=== PATIENT | male | born 1980 | race African-American/Black ===

== ENCOUNTER 2017-05-08 10:32 | Emergency (ER) | payer OTHER ==
[~2017-05-08] VITALS: Wt 94.0 kg
[2017-05-08] MEDS ORDERED: SOD CHLORIDE 0.9% 1,000 ML IV STA (11:55)
[2017-05-08] MEDS ORDERED: KETOROLAC 30 MG INJ IV STA (11:55)
[2017-05-08] MEDS ORDERED: ONDANSETRON 4 MG INJ IV STA (11:55)
[2017-05-08 12:42] LABS: BASOPHILS % 0.2 % (0.0-2.0); EOSINOPHILS % 0.1 % (0.0-7.0); HEMATOCRIT 45.6 % (42.0-52.0); HEMOGLOBIN 15.3 g/dl (14.0-18.0); LYMPHOCYTES # 1.6 10^3/ul (0.8-2.9); LYMPHOCYTES % 13.4 % (15.0-51.0); MEAN CORPUSCULAR HEMOGLOBIN 28.2 pg (29.0-33.0); MEAN CORPUSCULAR HGB CONC 33.6 g/dl (32.0-37.0); MEAN PLATELET VOLUME 10.1 fl (7.4-10.4); MONOCYTE # 1.1 10^3/ul (0.3-0.9); MONOCYTES % 9.6 % (0.0-11.0); NEUTROPHILS % 76.4 % (39.0-77.0); PLATELET COUNT 213 10^3/UL (140-415); RED BLOOD COUNT 5.43 10^6/ul (4.70-6.10); RED CELL DISTRIBUTION WIDTH 13.3 % (11.5-14.5); WHITE BLOOD COUNT 11.9 10^3/ul (4.8-10.8)
[2017-05-08 12:47] LABS: ADD UMIC YES; UR ASCORBIC ACID NEGATIVE (NEGATIVE); UR BILIRUBIN (Dip) NEGATIVE (NEGATIVE); UR BLOOD (Dip) 1+ mg/dL (NEGATIVE); UR CLARITY CLEAR (CLEAR); UR COLOR YELLOW (YELLOW); UR GLUCOSE (Dip) NEGATIVE (NEGATIVE); UR KETONES (Dip) TRACE mg/dL (NEGATIVE); UR LEUKOCYTE ESTERASE (Dip) NEGATIVE Leu/ul (NEGATIVE); UR NITRITE (Dip) NEGATIVE (NEGATIVE); UR RBC 2 /HPF (0-5); UR SPECIFIC GRAVITY (Dip) 1.016 (1.003-1.030); UR TOTAL PROTEIN (Dip) NEGATIVE (NEGATIVE); UR UROBILINOGEN (Dip) NEGATIVE (NEGATIVE)
[2017-05-08 13:04] LABS: ALBUMIN 4.2 g/dl (3.3-4.9); ALBUMIN/GLOBULIN RATIO 1.23; BILIRUBIN,INDIRECT 1.9 mg/dl (0-1.1); BILIRUBIN,TOTAL 1.9 mg/dl (0.2-1.3); CALCIUM 9.2 mg/dl (8.4-10.2); CREATININE 2.06 mg/dl (0.61-1.24); POTASSIUM 4.2 mmol/L (3.5-5.1); TOTAL PROTEIN 7.6 g/dl (6.1-8.1)
--- NOTE | 2017-05-08 13:49 | RADRPT ---
PROCEDURE: Retroperitoneal US. CLINICAL INDICATION: Flank pain TECHNIQUE: Multiple sonographic images of the kidneys and retroperitoneum were obtained. The imag es were reviewed on a PACS workstation. COMPARISON: No prior studies are available for comparison. FINDINGS: The kidneys are normal in size, contour, cortical thickness and cortical echogenicity. The right kidney measures 10.5 cm. The left kidney measures 11.5 cm. No kidney stones are visualized. There is no evidence for hydronephrosis. The urinary bladder is normal. The prostate measures 2.4 x 3.0 cm. RPTAT: AA IMPRESSION: Unremarkable retroperitoneal ultrasound. .Rupret Wilder MD, MD Date Time Electronically viewed and signed by .Rupert Wilder MD, MD on 05/08/2017 13:48 .S/
[2017-05-08] MEDS ORDERED: TAMS-14 PO (14:16)
[2017-05-08] MEDS ORDERED: TRAM50TA2 PO (14:16)
--- NOTE | 2017-05-08 14:22 | ERD ---
ER Documentation Chief Complaint Date/Time DATE: 05/08/17 TIME: 14:18 Chief Complaint l. flank pain HPI 76-year-old male presents with left flank pain. He was recently diagnosed in [place] with a kidney stone. He is prescribed [place] but has recurrent pain. He has chills but no measured fevers. He has no hematuria or dysuria discharge. He did see his primary doctor who is awaiting lab reports from his ER visit [id number]. Denies any previous history of kidney stone. He was told that it was 2 mm ROS All systems reviewed and are negative except as per history of present illness. Medications Home Meds Active Scripts Tamsulosin Hcl* (Flomax*) 0.4 Mg Cap.er.24h, 0.4 MG PO BID, #30 CAP Prov:BOBBI SAAVEDRA MD 05/08/17 Tramadol HCl (Tramadol HCl) 50 Mg Tablet, 50 MG PO Q4 Y for PAIN, #20 TAB Prov:BOBBI SAAVEDRA MD 05/08/17 Allergies Allergies: Uncoded Allergies: SULFA (Allergy, Unknown, 05/08/17) PMhx/Soc Medical and Surgical Hx: pt denies Medical Hx, pt denies Surgical Hx Hx Alcohol Use: No Hx Substance Use: No Hx Tobacco Use: No Smoking Status: Never smoker Physical Exam Physical Exam Const: [], [id number] Head: Atraumatic Eyes: Normal Conjunctiva ENT: Normal External Ears, Nose and Mouth. Neck: Full range of motion..~ No meningismus. Resp: Clear to auscultation bilaterally Cardio: Regular rate and rhythm, no murmurs Abd: Soft, non tender, non distended. Normal bowel sounds Skin: No petechiae or rashes Back: No midline mild left flank tenderness in the left mid abdominal tenderness. No tenderness at McBurney's point no Echeverria sign. Ext: No cyanosis, or edema Neur: Awake and alert Psych: Normal Mood and Affect Result Diagram: 05/08/17 1223 05/08/17 1223 Results 24 hrs Laboratory Tests Test 05/08/17 12:23 White Blood Count 11.910^3/ul Red Blood Count 5.4310^6/ul Hemoglobin 15.3g/dl Hematocrit 45.6% Mean Corpuscular Volume 84.0fl Mean Corpuscular Hemoglobin 28.2pg Mean Corpuscular Hemoglobin Concent 33.6g/dl Red Cell Distribution Width 13.3% Platelet Count 20845^3/UL Mean Platelet Volume 10.1fl Neutrophils % 76.4% Lymphocytes % 13.4% Monocytes % 9.6% Eosinophils % 0.1% Basophils % 0.2% Nucleated Red Blood Cells % 0.0/100WBC Neutrophils # (Manual) 910^3/ul Lymphocytes # 1.610^3/ul Monocytes # 1.110^3/ul Eosinophils # 0.010^3/ul Basophils # 0.010^3/ul Nucleated Red Blood Cells # 0.010^3/ul Urine Color YELLOW Urine Clarity CLEAR Urine pH 5.0 Urine Specific [place] 1.016 Urine Ketones TRACEmg/dL Urine Nitrite NEGATIVEmg/dL Urine Bilirubin NEGATIVEmg/dL Urine Urobilinogen NEGATIVEmg/dL Urine Leukocyte Esterase NEGATIVELeu/ul Urine Microscopic RBC 2/HPF Urine Microscopic WBC 2/HPF Urine Hemoglobin 1+mg/dL Urine Glucose NEGATIVEmg/dL Urine Total Protein NEGATIVEmg/dl Sodium Level 136mmol/L Potassium Level 4.2mmol/L Chloride Level 100mmol/L Carbon Dioxide Level 26mmol/L Anion Gap 14 Blood Urea Nitrogen 17mg/dl Creatinine 2.06mg/dl Glucose Level 122mg/dl Calcium Level 9.2mg/dl Total Bilirubin 1.9mg/dl Direct Bilirubin 0.00mg/dl Indirect Bilirubin 1.9mg/dl Aspartate Amino Transf (AST/SGOT) 27IU/L Alanine Aminotransferase (ALT/SGPT) 36IU/L Alkaline Phosphatase 94IU/L Total Protein 7.6g/dl Albumin 4.2g/dl Globulin 3.40g/dl Albumin/Globulin Ratio 1.23 Lipase 32U/L Current Medications Medications (Trade) Dose Ordered Sig/Eric Route PRN Reason Start Time Stop Time Status Last Admin Dose Admin Sodium Chloride (NS) 1,000 ml @ 1,000 mls/hr Q1H STAT IV 05/08/17 11:55 05/08/17 12:54 DC 05/08/17 12:32 Ondansetron HCl (Zofran Inj) 4 mg ONCE STAT IV 05/08/17 11:55 05/08/17 11:57 DC 05/08/17 12:31 Ketorolac Tromethamine (Toradol) 30 mg ONCE STAT IV 05/08/17 11:55 05/08/17 11:57 DC 05/08/17 12:31 Procedures/MDM Patient was given 1 L normal saline and Toradol 30 g IV. Shows hemoglobin without nitrites, leukocytes, glucose. CBC shows slight leukocytosis, suspicious for stress effect given no evidence of infection. CMP shows elevated creatinine of 2. No previous creatinine is available. Patient had complete resolution of symptoms after observation treatment for renal ultrasound shows no hydronephrosis or additional abnormal findings. Patient was discharged home with prescription of tramadol and primary care follow-up. His return for fevers, vomiting, new worsening symptoms otherwise drink fluids at home and follow-up with PCP and neurologist as directed. Recommend following of elevated creatinine in comparison with previous labs and further evaluation management as dictated by primary doctor. The patient was stable with no new complaints during the ER course. Clinically, there is no current evidence to suggest meningitis, sepsis, acute abdomen, pneumonia, acute coronary syndrome, pulmonary embolism, or any other emergent condition appearing to require further evaluation or hospitalization. The patient should certainly return for any new or worsening symptoms per the aftercare instructions. They should otherwise follow-up with her primary care doctor for reevaluation this week. Disclaimer: Inadvertent spelling and grammatical errors are likely due to EHR/ dictation software use and do not reflect on the overall quality of patient care. Also, please note that the electronic time recorded on this note does not necessarily reflect the actual time of the patient encounter. Departure Diagnosis: Primary Impression: Flank pain Condition: Stable Patient Instructions: Kidney Stone W/ Colic Additional Instructions: Drink plenty of fluids at home. See primary doctor and urology for further evaluation. Creatinine is elevated which may be normal but recommend recheck with previous labs and further monitoring with primary doctor. Recheck otherwise for fevers, vomiting, new or worsening symptoms. Likely need referral from primary doctor for urology visit BOBBI SAAVEDRA MD May 08, 2017 14:21
[2017-05-08 14:37] VITALS: BP 138/76; PULSE 74; RESP 20; TEMP 98.2
== END 2017-05-08 14:38 | disposition home or self-care (01) ==
LOC: FTE 10:32
DX: R10.9 Unspecified abdominal pain (principal)
CPT/HCPCS: 36415; 76775; 80053; 81001; 83690; 85025; 96374; 96375; J1885; J2405; J7030; Z7502